=== PATIENT | male | born 2000 | race Caucasian/White ===

== ENCOUNTER 2023-08-01 10:03 | Emergency (ER) | payer BC ==
[~2023-08-01] VITALS: Ht 177.8 cm; Wt 64.4 kg
[2023-08-01] MEDS ORDERED: KETOROLAC TROMETHAMINE INJ 30 MG/ML VIAL ONE (10:36)
[2023-08-01] MEDS ORDERED: ACETAMINOPHEN ES 500 MG TABLET ONE (10:36)
[2023-08-01] MEDS: KETOROLAC TROMETHAMINE INJ 30 MG/ML VIAL IV ONE (10:50)
[2023-08-01] MEDS: ACETAMINOPHEN ES 500 MG TABLET PO ONE (10:54)
[2023-08-01 11:29] LABS: BASOPHILS % (AUTO) 0.5 % (0.0-2.0); EOSINOPHILS # (AUTO) 0.1 K/uL (0.0-0.7); EOSINOPHILS % (AUTO) 2.3 % (0.0-6.0); HEMATOCRIT 43 % (39-51); HEMOGLOBIN 14.6 g/dL (13.5-17.5); LYMPHOCYTES # (AUTO) 1.5 K/uL (0.8-4.8); LYMPHOCYTES % (AUTO) 25.9 % (20.0-44.0); MEAN CORPUSCULAR HEMOGLOBIN 31 PG (26.0-33.0); MEAN CORPUSCULAR HGB CONC 34 g/dl (31.0-36.0); MEAN CORPUSCULAR VOLUME 91 fL (80-96); MONOCYTES # (AUTO) 0.6 K/uL (0.1-1.30); MONOCYTES % (AUTO) 10.2 % (2.0-12.0); NEUTROPHILS # (AUTO) 3.6 K/uL (1.8-8.9); NEUTROPHILS % (AUTO) 61.1 % (43.0-81.0); PLATELET COUNT (AUTO) 252 K/uL (150-450); RED CELL DISTRIBUTION WIDTH 12.8 % (11.5-15.0); WHITE BLOOD COUNT (AUTO) 5.8 K/uL (4.3-11.0)
[2023-08-01 11:46] LABS: CREATININE 0.7 mg/dL (0.6-1.3); POTASSIUM 3.5 mmol/L (3.5-5.1)
[2023-08-01 11:50] LABS: APPEARANCE,URINE CLEAR (CLEAR); BILIRUBIN,URINE NEGATIVE (NEGATIVE); BLOOD, URINE NEGATIVE Ery/uL (NEGATIVE); COLOR,URINE YELLOW (YELLOW); KETONES,URINE NEGATIVE (NEGATIVE); LEUKOCYTE ESTERASE ,URINE NEGATIVE (NEGATIVE); NITRITE, URINE NEGATIVE (NEGATIVE); PH,URINE 6.5 (5.0-8.0); PROTEIN,URINE NEGATIVE (NEGATIVE); UGLUCOSE NEGATIVE (NEGATIVE); UROBILINOGEN,URINE 0.2 EU/dL (0.2)
[2023-08-01 13:04] VITALS: BP 127/77; TEMP 98.4; O2SAT 100
== END 2023-08-01 13:04 | disposition home or self-care (01) ==
LOC: ER 10:03
DX: M62.82 Rhabdomyolysis (principal); M25.562 Pain in left knee; M25.561 Pain in right knee
CPT/HCPCS: 99284; 96374; 73564 ×2; 85025; 80048; 82550; 81003; 36415; 82553; J1885

== ENCOUNTER 2024-12-20 19:12 | Emergency (ER) | payer BC ==
[~2024-12-20] VITALS: Ht 172.7 cm; Wt 61.2 kg
[~2024-12-20 19:12] MED LIST: ACET-2605 PO; GUAI-946 PO; IBUP-1490 PO; PSEU120T83 PO
[2024-12-20] MEDS ORDERED: PANTOPRAZOLE 40 MG VIAL ONE (21:04)
[2024-12-20] MEDS ORDERED: FAMOTIDINE/PF INJ 20 MG/2 ML VIAL IV ONE (21:04)
[2024-12-20] MEDS: IV NS 0.9% 1,000 ML BAG IV ONE (21:14)
[2024-12-20] MEDS: PANTOPRAZOLE 40 MG VIAL IV ONE (21:14)
[2024-12-20] MEDS: FAMOTIDINE/PF INJ 20 MG/2 ML VIAL IV ONE (21:14)
[2024-12-20 21:21] LABS: PLATELET COUNT (AUTO) 291 K/uL (150-450); RED BLOOD CELL COUNT(AUTO) 5.20 MIL/uL (4.5-6.0); RED CELL DISTRIBUTION WIDTH 12.5 % (11.5-15.0); WHITE BLOOD COUNT (AUTO) 5.3 K/uL (4.3-11.0)
[2024-12-20 21:31] LABS: CALCIUM, SERUM 9.2 mg/dL (8.5-10.1); CREATININE 0.7 mg/dL (0.6-1.3); SODIUM SERUM 141.0 mmol/L (136-145); UREA NITROGEN, BLOOD 8.0 mg/dL (7-18)
[2024-12-20 21:37] LABS: ASPARTATE AMINOTRANSFERASE 14.0 U/L (15-37); TOTAL PROTEIN, SERUM 8.0 g/dL (6.4-8.2)
[2024-12-20 21:44] LABS: INR 1.17 (0.91-1.10)
[2024-12-21 02:18] VITALS: BP 119/79; TEMP 98.2; O2SAT 98
== END 2024-12-21 02:19 | disposition home or self-care (01) ==
LOC: ER 19:22
DX: R04.0 Epistaxis (principal); R63.4 Abnormal weight loss; R11.2 Nausea with vomiting, unspecified; Z68.20 Body mass index [BMI] 20.0-20.9, adult
CPT/HCPCS: 99285; 96374; 76705; 71045; 96361; 96375; 85025; 85610; 36415; 80053; J1308; J7030; J2470